=== PATIENT | female | born 1930 | race Caucasian/White ===

== ENCOUNTER 2020-09-27 21:26 | Emergency (ER) | payer MEDICARE, BC ==
[2020-09-27] MEDS ORDERED: hydrALAZINE 20 MG/ML SDV IM ONE (21:40)
--- NOTE | 2020-09-27 22:11 | EDM.PDOC ---
ED HPI GENERAL MEDICAL PROBLEM - General Chief Complaint: General Stated Complaint: elevated blood pressure Time Seen by Provider: 09/27/20 21:40 Source of Information: Reports: Patient, Family History Limitations: Reports: No Limitations - History of Present Illness INITIAL COMMENTS - FREE TEXT/NARRATIVE: presented to the ED because of an elevated BP-18/120. there is no headac he,dizziness, chest pain, N/V or dyspnea. She is taking Losartan and metoprolol for HTN. - Related Data Allergies Allergy/AdvReac Type Severity Reaction Status Date / Time Sulfa (Sulfonamide Allergy Rash Verified 09/27/20 21:29 Antibiotics) Home Meds: Home Meds Aspirin 81 mg PO DAILY 09/27/20 [History] Calcium Carbonate [Tums] 2 tab PO DAILY 09/27/20 [History] Cholecalciferol (Vitamin D3) [Vitamin D3] 1,000 units PO DAILY 09/27/20 [History] Docusate Sodium 100 mg PO BID 09/27/20 [History] Losartan [Cozaar] 50 mg PO DAILY 09/27/20 [History] Melatonin 3 mg PO BEDTIME 09/27/20 [History] Metoprolol Succinate 50 mg PO DAILY 09/27/20 [History] Multivitamin 1 tab PO DAILY 09/27/20 [History] Belsano-3 Fatty Acids/Fish Oil [Fish Oil 1,000 mg Capsule] 1 each PO DAILY 09/27/20 [History] Potassium Chloride 10 meq PO DAILY 09/27/20 [History] Rosuvastatin [Crestor] 20 mg PO BEDTIME 09/27/20 [History] Sennosides/Docusate Sodium [Senna Plus 8.6-50 mg Tablet] 2 tab PO DAILY 09/27/20 [History] Vitamin E 100 mg PO DAILY 09/27/20 [History] Past Medical History HEENT History: Reports: Cataract, Impaired Vision Cardiovascular History: Reports: High Cholesterol, Hypertension Gastrointestinal History: Reports: Chronic Constipation [employer] History: Reports: Neurological History: Reports: CVA - Past Surgical History HEENT Surgical History: Reports: Cataract Surgery Social & Family History - Tobacco Use Tobacco Use Status *Q: Never Tobacco User - Caffeine Use Caffeine Use: Reports: Coffee - Recreational Drug Use Recreational Drug Use: No ED ROS GENERAL - Review of Systems Review Of Systems: See Below Constitutional: Reports: No Symptoms HEENT: Reports: No Symptoms Respiratory: Reports: No Symptoms Cardiovascular: Reports: No Symptoms Endocrine: Reports: No Symptoms GI/Abdominal: Reports: No Symptoms : Reports: No Symptoms Musculoskeletal: Reports: No Symptoms Skin: Reports: No Symptoms Neurological: Reports: No Symptoms ED EXAM, GENERAL - Physical Exam Exam: See Below Exam Limited By: No Limitations General Appearance: Alert, No Apparent Distress Eye Exam: Bilateral Eye: PERRL Ears: Normal External Exam, Normal Canal Nose: Normal Inspection, Normal Mucosa, No Blood Throat/Mouth: Normal Inspection, Normal Lips, Normal Teeth Head: Atraumatic, Normocephalic Neck: Normal Inspection, Supple, Non-Tender, Full Range of Motion Respiratory/Chest: No Respiratory Distress, Lungs Clear, Normal Breath Sounds, No Accessory Muscle Use, Chest Non-Tender Cardiovascular: Normal Peripheral Pulses, Regular Rate, Rhythm, No Edema, No Gallop, No JVD, No Murmur, No Rub GI/Abdominal: Normal Bowel Sounds, Soft, Non-Tender, No Organomegaly Back Exam: Normal Inspection, Full Range of Motion Extremities: Normal Inspection, Normal Range of Motion, Non-Tender, No Pedal Edema, Normal Capillary Refill Neurological: Alert, Oriented, CN II-XII Intact, Normal Cognition, Normal Gait, Normal Reflexes, No Motor/Sensory Deficits Psychiatric: Normal Affect Course - Vital Signs Text/Narrative:: Hydralazine 20 mg IM and BP went down to 160/90 prior to discharge and still asymptomatic. Last Recorded V/S: Last Vital Signs Temp 36.5 C 09/27/20 21:34 Pulse 89 09/27/20 22:10 Resp 18 09/27/20 22:10 BP 160/90 H 09/27/20 22:10 Pulse Ox 100 09/27/20 22:10 - Orders/Labs/Meds Meds: Medications Discontinued Medications Generic Name Dose Route Start Last Admin Trade Name Freq PRN Reason Stop Dose Admin Hydralazine HCl 20 mg 09/27/20 21:40 09/27/20 21:45 Hydralazine 20 Mg/Ml Sdv IM 09/27/20 21:41 20 mg ONETIME ONE Administration Departure - Departure Time of Disposition: 22:30 Disposition: DC/[facility]fer to [facility] Condition: Good Clinical Impression: Hypertension - Discharge Information Instructions: Hypertension, Adult, [id number] Referrals: Nasima Christine PA [Primary Care Provider] - Forms: ED Department Discharge Additional Instructions: please read discharge instructions on hypertension low salt diet you don't knee to go to the ED if you BP is less than 185/115. If it's more than that take an extra dose of losartand metorpolol together and then check you BP after 2 hours follow up as needed Sepsis Event Note (ED) - Evaluation Sepsis Screening Result: No Definite Risk - Focused Exam Vital Signs: Vital Signs Temp Pulse Resp BP Pulse Ox 09/27/20 22:10 89 18 160/90 H 100 09/27/20 21:34 36.5 C 95 18 181/110 H 99
== END 2020-09-27 22:37 ==
LOC: FB.ED 21:26
DX: I10 Essential (primary) hypertension (principal); E78.00 Pure hypercholesterolemia, unspecified; Z79.899 Other long term (current) drug therapy; Z79.82 Long term (current) use of aspirin; Z88.2 Allergy status to sulfonamides
CPT/HCPCS: 96372; 99282; J0360

== ENCOUNTER 2021-08-20 12:12 | Emergency (ER) | payer MEDICARE, BC ==
[2021-08-20] MEDS ORDERED: Labetalol 20 MG/4 ML Syringe IVPUSH STA ×2 (12:22→17:04)
[2021-08-20] MEDS ORDERED: Sodium Chloride 0.9% 10 ML Syringe FLUSH PRN (12:22)
[2021-08-20 12:52] LABS: ESTIMATED GFR 47 (>60)
[2021-08-20] MEDS ORDERED: hydrALAZINE 20 MG/ML SDV IVPUSH ONE (14:49)
[2021-08-20] MEDS ORDERED: Acetaminophen 500 MG Tab PO ONE (15:27)
[2021-08-20] MEDS ORDERED: Iopamidol 755 Mg/ML 100 ML Bottle IV ONE (15:59)
[2021-08-20] MEDS ORDERED: Sodium Chloride 0.9% 1,000 ML IV SCH (16:00)
[2021-08-20] MEDS ORDERED: Ciprofloxacin 500 MG Tab PO ONE (18:20)
[2021-08-20] MEDS ORDERED: Acetaminophen 500 MG Tab ONE (18:23)
[2021-08-20] MEDS: amLODIPine 10 MG Tab PO SCH (18:41)
[2021-08-20] MEDS ORDERED: Melatonin 3 MG Tab PO SCH (21:00)
[2021-08-21] MEDS ORDERED: Ciprofloxacin 500 MG Tab PO ONE (08:09)
[2021-08-21] MEDS: amLODIPine 10 MG Tab PO SCH (08:16)
[2021-08-21] MEDS: Losartan 50 MG Tab PO ONE ×2 (08:19→08:20)
== END 2021-08-21 10:00 | disposition home or self-care (01) ==
LOC: FB.ED 12:12
DX: S09.90XA Unspecified injury of head, initial encounter (principal); N39.0 Urinary tract infection, site not specified; I16.9 Hypertensive crisis, unspecified; E78.00 Pure hypercholesterolemia, unspecified; I10 Essential (primary) hypertension; Z88.2 Allergy status to sulfonamides; Z86.73 Personal history of transient ischemic attack (TIA), and cerebral infarction without residual deficits; Z20.822 Contact with and (suspected) exposure to COVID-19; Z79.899 Other long term (current) drug therapy; W22.09XA Striking against other stationary object, initial encounter
CPT/HCPCS: 36415; 70450; 70496; 70498; 80053; 81001; 82947; 84484; 85025; 85610; 85730; 87086; 87088; 87186; 96374; 96375; 96376; 99283; 99284; A9270; J0360; J3490; J7030; Q9967; U0002